=== PATIENT | male | born 2000 | race African-American/Black ===

== ENCOUNTER 2021-02-10 14:55 | Emergency (ER) | payer MEDICAID ==
[~2021-02-10] VITALS: Ht 182.9 cm; Wt 77.3 kg
[2021-02-10] MEDS ORDERED: PROPARACAINE HCL 0.5% 15 ML OPHTHALMIC SOLUTION OD ONE (16:15)
[2021-02-10] MEDS ORDERED: FLUORESCEIN SODIUM 1 MG STRIP OU ONE (16:15)
[2021-02-10] MEDS ORDERED: NEOMYCIN/POLYMYXIN B/HYDROCORT 7.5 ML OPHTHALMIC SUSPENSION OD ONE (16:30)
[2021-02-10 17:08] VITALS: BP 110/60
== END 2021-02-10 17:09 | disposition home or self-care (01) ==
LOC: EMS 15:01
DX: H10.9 Unspecified conjunctivitis (principal)
CPT/HCPCS: 99284; Z7502; Z7610

== ENCOUNTER 2021-08-19 07:20 | Emergency (ER) | payer MEDICAID ==
[~2021-08-19] VITALS: Ht 182.9 cm; Wt 75.0 kg
[2021-08-19 08:51] VITALS: BP 122/81
== END 2021-08-19 08:57 | disposition home or self-care (01) ==
LOC: EMS 07:29
DX: H66.91 Otitis media, unspecified, right ear (principal)
CPT/HCPCS: 99283; Z7502

== ENCOUNTER 2021-10-31 11:49 | Emergency (ER) | payer OTHER ==
[~2021-10-31] VITALS: Ht 182.9 cm; Wt 72.7 kg
[2021-10-31 13:44] VITALS: BP 115/61
== END 2021-10-31 13:58 | disposition home or self-care (01) ==
LOC: EMS 11:53
DX: H60.91 Unspecified otitis externa, right ear (principal); H66.91 Otitis media, unspecified, right ear
CPT/HCPCS: 99283

== ENCOUNTER 2022-04-16 08:55 | Emergency (ER) | payer OTHER ==
[~2022-04-16] VITALS: Ht 182.9 cm; Wt 78.0 kg
[2022-04-16 09:01] VITALS: BP 111/71
[2022-04-16 09:10] LABS: COVID AG,FIA SOURCE NASAL SWAB
[2022-04-16] MEDS ORDERED: PROM118S5 PO (12:16)
[2022-04-16] MEDS ORDERED: PSEU120T61 PO (12:16)
[2022-04-16] MEDS ORDERED: BENZ-70 PO (12:16)
[2022-04-16] MEDS ORDERED: POLY10DR3 OD (12:16)
== END 2022-04-16 12:45 | disposition home or self-care (01) ==
LOC: EMS 08:57
DX: H10.31 Unspecified acute conjunctivitis, right eye (principal); J06.9 Acute upper respiratory infection, unspecified; Z20.822 Contact with and (suspected) exposure to COVID-19; H57.89 Other specified disorders of eye and adnexa
CPT/HCPCS: 99283